=== PATIENT | male | born 1955 | race Caucasian/White ===

== ENCOUNTER 2018-02-14 17:36 | Emergency (ER) | payer BC ==
[~2018-02-14] VITALS: Ht 167.6 cm; Wt 75.7 kg
[2018-02-14 17:46] VITALS: Ht 167.6 cm; Wt 75.7 kg
[2018-02-14 19:50] VITALS: BP 136/87
== END 2018-02-14 19:50 | disposition home or self-care (01) ==
LOC: ED 17:36
DX: S43.004A Unspecified dislocation of right shoulder joint, initial encounter (principal); S50.311A Abrasion of right elbow, initial encounter; W01.0XXA Fall on same level from slipping, tripping and stumbling without subsequent striking against object, initial encounter; Y93.89 Activity, other specified; Y92.89 Other specified places as the place of occurrence of the external cause; Y99.8 Other external cause status
CPT/HCPCS: J2405; J3490; J7030; Q0092